=== PATIENT | female | born 1945 | race Caucasian/White ===

== ENCOUNTER 2016-05-03 06:50 | Day surgery (SDC) | payer OTHER, MEDICARE ==
[2016-05-03] MEDS ORDERED: OCTREOTIDE ACETATE,MI-SPHERES (SANDOSTATIN LAR) 30 MG VIAL IM ONE (08:00)
[2016-05-03 12:12] VITALS: BP 98/70; PULSE 58; TEMP 98.2
== END 2016-05-03 12:14 | disposition home or self-care (01) ==
LOC: JONCCHEMO 06:50 → J7W 10:16 → JONCCHEMO 12:14
PROVIDERS: ATTEND Internal Medicine Hematology & Oncology
PROC: 3E013GC Introduction of Other Therapeutic Substance into Subcutaneous Tissue, Percutaneous Approach (ICD-10-PCS; principal; 2016-05-03)
DX: D3A.012 Benign carcinoid tumor of the ileum (principal)
CPT/HCPCS: 96372; J2353

== ENCOUNTER 2016-06-04 07:06 | Day surgery (SDC) | payer OTHER, MEDICARE ==
[2016-06-04] MEDS ORDERED: OCTREOTIDE ACETATE,MI-SPHERES (SANDOSTATIN LAR) 30 MG VIAL IM ONE (08:00)
[2016-06-04 17:49] VITALS: BP 110/60; PULSE 73; TEMP 98.1
== END 2016-06-04 10:30 | disposition home or self-care (01) ==
LOC: JONCCHEMO 07:06 → J7W 10:14 → JONCCHEMO 10:30
PROVIDERS: ATTEND Internal Medicine Hematology & Oncology
PROC: 3E023GC Introduction of Other Therapeutic Substance into Muscle, Percutaneous Approach (ICD-10-PCS; principal; 2016-06-04)
DX: D3A.00 Benign carcinoid tumor of unspecified site (principal)
CPT/HCPCS: 96372; J2353

== ENCOUNTER 2016-06-28 07:05 | Day surgery (SDC) | payer OTHER, MEDICARE ==
[2016-06-28] MEDS ORDERED: OCTREOTIDE ACETATE,MI-SPHERES (SANDOSTATIN LAR) 30 MG VIAL IM ONE (08:00)
[2016-06-28 10:58] VITALS: BP 111/75; PULSE 63; TEMP 97.9
== END 2016-06-28 13:06 | disposition home or self-care (01) ==
LOC: JONCCHEMO 07:05 → J7W 10:26 → JONCCHEMO 13:06
PROVIDERS: ATTEND Internal Medicine Hematology & Oncology
PROC: 3E023GC Introduction of Other Therapeutic Substance into Muscle, Percutaneous Approach (ICD-10-PCS; principal; 2016-06-28)
DX: D3A.00 Benign carcinoid tumor of unspecified site (principal)
CPT/HCPCS: 96372; J2353

== ENCOUNTER 2016-07-24 13:52 | Emergency (ER) | payer OTHER, MEDICARE ==
[2016-07-24] MEDS ORDERED: DOXYCYCLINE HYCLATE 100 MG CAPSULE PO ONE ×3 (14:10→14:18)
[2016-07-24 14:13] VITALS: BP 131/83; PULSE 64; TEMP 98.8; BMI 20.1
--- NOTE | 2016-07-24 14:17 | PDOC ---
History of Present Illness - General Chief Complaint: Bite Stated Complaint: TICK ON RIGHT SIDE Time Seen by Provider: 07/24/16 13:59 History Source: Patient Exam Limitations: No Limitations - History of Present Illness Initial Comments: 07/24/16 14:10 This patient is a 70-year-old female with a history of carcinoid cancer diagnosed in 2001 status post colon resection, status post recurrence and resection of ovaries, history of SVT who presents emergency department with a complaint of headache. Patient states she thought she noted a mole on her right chest a possibly 5 days ago, noted that was bleeding. She did not want to disturb it, She was at a doctors appointment today and showed it to him. Disposition states that the mole was actually a tic, and referred her to her primary care physician. Patient called her primary care physician who told her to come to the emergency department for immediate tick removal. Edema. No fevers no chills. No joint pain. PMH: As above PSH: As above Medications: Please see MAR A LL: Septra results GENERAL/CONSTITUTIONAL: No: fever, chills, weakness, loss of appetite. HEAD, EYES, EARS, NOSE AND THROAT: No: change in vision, ear pain, discharge, sore throat, throat swelling. SKIN: (+) TICK . GENERAL: The patient is in no acute distress. SKIN: Engorged tick burrowing into skin, no surrounding erythema Past History - Past Medical History Allergies/Adverse Reactions: Allergies Allergy/AdvReac Type Severity Reaction Status Date / Time Sulfa (Sulfonamide Allergy Rash Verified 07/24/16 14:26 Antibiotics) Home Medications: Ambulatory Orders Aspirin 81 mg PO DAILY 01/08/13 Calcium Acetate [Phoslo] 2 each PO DAILY 01/08/13 Cholecalciferol (Vitamin D3) [Vitamin D3] 100,000 unit PO DAILY 01/08/13 Cyanocobalamin Vit B-12 Inj. [Vitamin B12 Injection -] 1 mg IM ASDIR 01/08/13 Docosahexanoic Acid/Epa [Fish Oil Softgel] 1 each PO DAILY 01/08/13 L. Rhamnosus GG/Inulin [Culturelle Capsule] 1 each PO DAILY 01/08/13 Octreotide Acetate,Mi-Spheres [Sandostatin Lar -] 30 mg IM ASDIR 01/08/13 FA/Mv,Ca,Iron,Min/Lycopene/Lut [Centrum Tablet] 1 each PO DAILY 06/11/14 Lipase/Protease/Amylase [Creon Dr 24,000 Units Capsule] 1 each PO TID 06/11/14 Metoprolol Succinate [Toprol Xl] 50 mg PO BID 06/11/14 Anemia: No Asthma: No Cancer: No Cardiac Disorders: Yes (SVT,TRANSTHORACIC ECHO MITRAL REGURGITATION) CVA: No COPD: No CHF: No Dementia: No Diabetes: No GI Disorders: Yes (GERD, CARCINOID OF SMALL BOWEL, HIATL HERNIA) Disorders: No HTN: No Hypercholesterolemia: No Liver Disease: No Seizures: No Thyroid Disease: No - Surgical History Abdominal Surgery: Yes (EXTENDED ILEOCOLECTOMY) Appendectomy: Yes Cardiac Surgery: No Cholecystectomy: No Lung Surgery: No Neurologic Surgery: No Orthopedic Surgery: No - Psycho/Social/Smoking Cessation Hx Anxiety: No Suicidal Ideation: No Smoking History: Former smoker Have you smoked in the past 12 months: No If you are a former smoker, when did you quit?: 50 YRS AGO Information on smoking cessation initiated: No Hx Alcohol Use: Yes (SOCIAL) Drug/Substance Use Hx: No Substance Use Type: Alcohol Hx Substance Use Treatment: No *Physical Exam - Vital Signs Last Vital Signs Temp Pulse Resp BP Pulse Ox 98.8 F 64 16 131/83 96 07/24/16 13:54 07/24/16 13:54 07/24/16 13:54 07/24/16 13:54 07/24/16 13:54 Medical Decision Making - Medical Decision Making 07/25/16 08:49 Will give prophylaxis Tick has been attached longer than 72 hour and prophylaxis could not be started within 72 hours according to IDSA guidelines Pt asked to monitor site for target sign Follow up with PMD for testing *DC/Admit/Observation/Transfer Diagnosis at time of Disposition: Tick bite Qualifiers: Encounter type: initial encounter Qualified Code(s): W57.XXXA - Bitten or stung by nonvenomous insect and other nonvenomous arthropods, initial encounter - Discharge Dispostion Disposition: HOME Condition at time of disposition: Stable Admit: No - Patient Instructions Printed Discharge Instructions: DI for Lyme Disease Additional Instructions: You were given Prophylaxis given an engorged tick was removed from your skin Please follow up with your primary care physician for serological testing Please return to the ER or call your doctor if you get symptoms, fevers, chills , joint pain, any other concerns or complaints The tick will be sent for testing
== END 2016-07-24 14:36 | disposition home or self-care (01) ==
LOC: FER 13:52
DX: S20.361A Insect bite (nonvenomous) of right front wall of thorax, initial encounter (principal); W57.XXXA Bitten or stung by nonvenomous insect and other nonvenomous arthropods, initial encounter; Y93.89 Activity, other specified; Y92.9 Unspecified place or not applicable; Z85.030 Personal history of malignant carcinoid tumor of large intestine; K21.9 Gastro-esophageal reflux disease without esophagitis; I47.1 Supraventricular tachycardia; Z79.82 Long term (current) use of aspirin
CPT/HCPCS: 87168; 99281-25

== ENCOUNTER 2016-07-25 07:26 | Day surgery (SDC) | payer OTHER, MEDICARE ==
[2016-07-25] MEDS ORDERED: OCTREOTIDE ACETATE,MI-SPHERES (SANDOSTATIN LAR) 30 MG VIAL IM ONE (10:00)
[2016-07-25 10:29] VITALS: BP 132/80; PULSE 54; TEMP 97.8
== END 2016-07-25 11:04 | disposition home or self-care (01) ==
LOC: JONCCHEMO 07:26 → J7W 10:23 → JONCCHEMO 11:04
PROVIDERS: ATTEND Internal Medicine Hematology & Oncology
PROC: 3E033GC Introduction of Other Therapeutic Substance into Peripheral Vein, Percutaneous Approach (ICD-10-PCS; principal; 2016-07-25)
DX: D3A.00 Benign carcinoid tumor of unspecified site (principal)
CPT/HCPCS: 96372; J2353

== ENCOUNTER 2016-08-30 07:54 | Day surgery (SDC) | payer OTHER, MEDICARE ==
[2016-08-30 09:21] VITALS: BP 132/79; PULSE 53; TEMP 97.6
[2016-08-30] MEDS ORDERED: OCTREOTIDE ACETATE,MI-SPHERES (SANDOSTATIN LAR) 30 MG VIAL IM ONE (10:00)
== END 2016-08-30 11:15 | disposition home or self-care (01) ==
LOC: JONCNONCHE 07:54 → J7W 09:12 → JONCNONCHE 11:15
PROVIDERS: ATTEND Internal Medicine Hematology & Oncology
PROC: 3E023GC Introduction of Other Therapeutic Substance into Muscle, Percutaneous Approach (ICD-10-PCS; principal; 2016-08-30)
DX: D3A.00 Benign carcinoid tumor of unspecified site (principal)
CPT/HCPCS: 96372; J2353

== ENCOUNTER 2016-09-27 07:49 | Day surgery (SDC) | payer OTHER, MEDICARE ==
[2016-09-27] MEDS ORDERED: OCTREOTIDE ACETATE,MI-SPHERES (SANDOSTATIN LAR) 30 MG VIAL IM ONE (08:00)
[2016-09-27 08:53] VITALS: TEMP 98.1
[2016-09-27 09:00] LABS: BASOPHIL 1.1 % (0-2.0); EOSINOPHIL 3.4 % (0-4.5); MCH 31.8 pg (25.7-33.7); MCHC 33.4 g/dl (32.0-36.0); MEAN CELL VOLUME 95.1 fl (80-96); MEAN PLT VOLUME 8.9 fl (7.5-11.1); PLATELET COUNT 124 K/MM3 (134-434); RDW 14.2 % (11.6-15.6); WHITE BLOOD COUNT 5.4 K/mm3 (4.0-10.0)
[2016-09-27 09:23] LABS: ALBUMIN 3.8 g/dl (3.4-5.0); ALK PHOS 87 U/L (45-117); ANION GAP 3 (8-16); BILIRUBIN,DIRECT 0.2 mg/dL (0.0-0.2); BILIRUBIN,TOTAL 0.7 mg/dL (0.2-1.0); CALCIUM 9.1 mg/dL (8.5-10.1); CO2 31 mmol/L (21-32); CREATININE 0.7 mg/dL (0.55-1.02); GLUCOSE,RANDOM 97 mg/dL (74-106); SGOT/AST 46 U/L (15-37); SGPT/ALT 58 U/L (12-78); TOT PROT 7.1 g/dl (6.4-8.2)
[2016-09-27 10:10] VITALS: BP 133/80; PULSE 80
[2016-10-01 10:08] LABS: SEROTONIN,SERUM 668 ng/mL (0-420)
[2016-10-01 16:20] LABS: CHROMOGRANIN A 3 nmol/L (0-5)
== END 2016-09-27 10:15 | disposition home or self-care (01) ==
LOC: JONCCHEMO 07:49 → J7W 09:41 → JONCCHEMO 10:15
PROVIDERS: ATTEND Internal Medicine Hematology & Oncology
PROC: 3E013GC Introduction of Other Therapeutic Substance into Subcutaneous Tissue, Percutaneous Approach (ICD-10-PCS; principal; 2016-09-27)
DX: D3A.00 Benign carcinoid tumor of unspecified site (principal)
CPT/HCPCS: 96372; J2353; 36415; 80053; 80076; 83735; 84260; 85025; 86316

== ENCOUNTER 2016-10-25 07:43 | Day surgery (SDC) | payer OTHER, MEDICARE ==
[2016-10-25] MEDS: OCTREOTIDE ACETATE,MI-SPHERES (SANDOSTATIN LAR) 30 MG VIAL IM ONE ×2 (08:58→17:55)
[2016-10-25 09:08] VITALS: BP 145/88; PULSE 61; TEMP 97.6
== END 2016-10-25 09:10 | disposition home or self-care (01) ==
LOC: JONCCHEMO 07:43 → J7W 08:52 → JONCCHEMO 09:10
PROVIDERS: ATTEND Internal Medicine Hematology & Oncology
PROC: 3E00XGC Introduction of Other Therapeutic Substance into Skin and Mucous Membranes, External Approach (ICD-10-PCS; principal; 2016-10-25)
DX: D3A.00 Benign carcinoid tumor of unspecified site (principal)
CPT/HCPCS: 96372; J2353

== ENCOUNTER 2016-11-29 07:19 | Day surgery (SDC) | payer OTHER, MEDICARE ==
[2016-11-29] MEDS ORDERED: OCTREOTIDE ACETATE,MI-SPHERES (SANDOSTATIN LAR) 30 MG VIAL IM ONE (08:00)
[2016-11-29 16:04] VITALS: BP 113/77; PULSE 66; TEMP 97.7
== END 2016-11-29 19:41 | disposition home or self-care (01) ==
LOC: JONCCHEMO 07:19 → J7W 09:58 → JONCCHEMO 19:41
PROVIDERS: ATTEND Internal Medicine Hematology & Oncology
PROC: 3E013GC Introduction of Other Therapeutic Substance into Subcutaneous Tissue, Percutaneous Approach (ICD-10-PCS; principal; 2016-11-29)
DX: D3A.00 Benign carcinoid tumor of unspecified site (principal)
CPT/HCPCS: J2353

== ENCOUNTER 2016-12-27 07:20 | Day surgery (SDC) | payer OTHER, MEDICARE ==
[2016-12-27 09:39] VITALS: BP 119/78; PULSE 52; TEMP 97.6
[2016-12-27] MEDS ORDERED: OCTREOTIDE ACETATE,MI-SPHERES (SANDOSTATIN LAR) 30 MG VIAL IM ONE (10:00)
== END 2016-12-27 09:45 | disposition home or self-care (01) ==
LOC: JONCCHEMO 07:20 → J7W 09:23 → JONCCHEMO 09:45
PROVIDERS: ATTEND Internal Medicine Hematology & Oncology
PROC: 3E013GC Introduction of Other Therapeutic Substance into Subcutaneous Tissue, Percutaneous Approach (ICD-10-PCS; principal; 2016-12-27)
DX: D3A.00 Benign carcinoid tumor of unspecified site (principal)
CPT/HCPCS: 96372; J2353

== ENCOUNTER 2017-01-31 07:26 | Day surgery (SDC) | payer OTHER, MEDICARE ==
[2017-01-31] MEDS ORDERED: OCTREOTIDE ACETATE,MI-SPHERES (SANDOSTATIN LAR) 30 MG VIAL IM ONE (08:00)
[2017-01-31 10:38] VITALS: PULSE 58; TEMP 97.5
[2017-01-31 10:49] VITALS: BP 147/58
== END 2017-01-31 10:15 | disposition home or self-care (01) ==
LOC: JONCCHEMO 07:26 → J7W 09:58 → JONCCHEMO 10:15
PROVIDERS: ATTEND Internal Medicine Hematology & Oncology
PROC: 3E013GC Introduction of Other Therapeutic Substance into Subcutaneous Tissue, Percutaneous Approach (ICD-10-PCS; principal; 2017-01-31)
DX: D3A.00 Benign carcinoid tumor of unspecified site (principal)
CPT/HCPCS: 96372; J2353

== ENCOUNTER 2017-03-14 07:37 | Day surgery (SDC) | payer OTHER, MEDICARE ==
[2017-03-14 09:35] VITALS: BP 134/79; PULSE 54; TEMP 97.6
[2017-03-14 09:49] LABS: EOS % 1.8 % (0-4.5); HEMATOCRIT 41.2 % (32.4-45.2); HEMOGLOBIN 13.4 GM/dL (10.7-15.3); MCH 30.9 pg (25.7-33.7); MCHC 32.5 g/dl (32.0-36.0); MEAN PLT VOLUME 8.8 fl (7.5-11.1); NEUT % 61.2 % (42.8-82.8); PLATELET COUNT 158 K/MM3 (134-434); RBC 4.34 M/mm3 (3.60-5.2); RDW 13.9 % (11.6-15.6); WHITE BLOOD COUNT 6.3 K/mm3 (4.0-10.0)
[2017-03-14 10:00] LABS: ALBUMIN 3.9 g/dl (3.4-5.0); ALK PHOS 74 U/L (45-117); ANION GAP 4 (8-16); BILIRUBIN,DIRECT 0.2 mg/dL (0.0-0.2); BILIRUBIN,TOTAL 0.6 mg/dL (0.2-1.0); BLOOD UREA NITROGEN 15 mg/dL (7-18); CALCIUM 8.8 mg/dL (8.5-10.1); CHLORIDE 104 mmol/L (98-107); CO2 30 mmol/L (21-32); CREATININE 0.7 mg/dL (0.55-1.02); GLUCOSE,RANDOM 93 mg/dL (74-106); POTASSIUM 4.3 mmol/L (3.5-5.1); SGPT/ALT 26 U/L (12-78); SODIUM 138 mmol/L (136-145); TOT PROT 7.4 g/dl (6.4-8.2)
[2017-03-14] MEDS ORDERED: OCTREOTIDE ACETATE,MI-SPHERES (SANDOSTATIN LAR) 30 MG VIAL IM ONE (10:00)
[2017-03-14 10:03] LABS: SGOT/AST 16 U/L (15-37)
== END 2017-03-14 09:36 | disposition home or self-care (01) ==
LOC: JONCCHEMO 07:37 → J7W 09:00 → JONCCHEMO 09:36
PROVIDERS: ATTEND Internal Medicine Hematology & Oncology
PROC: 3E013GC Introduction of Other Therapeutic Substance into Subcutaneous Tissue, Percutaneous Approach (ICD-10-PCS; principal; 2017-03-14)
DX: D3A.00 Benign carcinoid tumor of unspecified site (principal)
CPT/HCPCS: 36415; 80048; 80076; 82525; 84260; 85025; 86316; 96372; J2353

== ENCOUNTER 2017-04-11 07:22 | Day surgery (SDC) | payer OTHER, MEDICARE ==
[2017-04-11] MEDS ORDERED: OCTREOTIDE ACETATE,MI-SPHERES (SANDOSTATIN LAR) 30 MG VIAL IM ONE (09:00)
[2017-04-11 09:27] VITALS: BP 128/70; PULSE 60; TEMP 97.3
== END 2017-04-11 09:25 | disposition home or self-care (01) ==
LOC: JONCCHEMO 07:22 → J7W 08:59 → JONCCHEMO 09:25
PROVIDERS: ATTEND Internal Medicine Hematology & Oncology
PROC: 3E013GC Introduction of Other Therapeutic Substance into Subcutaneous Tissue, Percutaneous Approach (ICD-10-PCS; principal; 2017-04-11)
DX: D3A.00 Benign carcinoid tumor of unspecified site (principal)
CPT/HCPCS: 96372; 96401; J2353

== ENCOUNTER 2017-07-11 07:30 | Day surgery (SDC) | payer OTHER, MEDICARE ==
[2017-07-11 09:35] VITALS: BP 129/85; PULSE 60; TEMP 97.7
[2017-07-11] MEDS ORDERED: OCTREOTIDE ACETATE,MI-SPHERES (SANDOSTATIN LAR) 30 MG VIAL IM ONE (10:00)
== END 2017-07-11 09:35 | disposition home or self-care (01) ==
LOC: JONCCHEMO 07:30 → J7W 09:19 → JONCCHEMO 09:35
PROVIDERS: ATTEND Internal Medicine Hematology & Oncology
PROC: 3E023GC Introduction of Other Therapeutic Substance into Muscle, Percutaneous Approach (ICD-10-PCS; principal; 2017-07-11)
DX: D3A.00 Benign carcinoid tumor of unspecified site (principal)
CPT/HCPCS: 96372; 96401; J2353

== ENCOUNTER 2017-08-08 07:22 | Day surgery (SDC) | payer OTHER, MEDICARE ==
[2017-08-08] MEDS ORDERED: OCTREOTIDE ACETATE,MI-SPHERES (SANDOSTATIN LAR) 30 MG VIAL IM ONE (09:00)
[2017-08-08 09:01] VITALS: BP 114/76; PULSE 58; TEMP 97.7
== END 2017-08-08 09:11 | disposition home or self-care (01) ==
LOC: JONCCHEMO 07:22 → J7W 08:48 → JONCCHEMO 09:11
PROVIDERS: ATTEND Internal Medicine Hematology & Oncology
PROC: 3E013GC Introduction of Other Therapeutic Substance into Subcutaneous Tissue, Percutaneous Approach (ICD-10-PCS; principal; 2017-08-08)
DX: D3A.00 Benign carcinoid tumor of unspecified site (principal)
CPT/HCPCS: 96372; 96401; J2353

== ENCOUNTER 2017-09-19 07:42 | Day surgery (SDC) | payer OTHER, MEDICARE ==
[2017-09-19] MEDS ORDERED: OCTREOTIDE ACETATE,MI-SPHERES (SANDOSTATIN LAR) 30 MG VIAL IM ONE (09:00)
[2017-09-19 14:19] VITALS: BP 125/83; PULSE 66; TEMP 98.2
== END 2017-09-19 11:25 | disposition home or self-care (01) ==
LOC: JONCCHEMO 07:42 → J7W 11:06 → JONCCHEMO 11:25
PROVIDERS: ATTEND Internal Medicine Hematology & Oncology
PROC: 3E013GC Introduction of Other Therapeutic Substance into Subcutaneous Tissue, Percutaneous Approach (ICD-10-PCS; principal; 2017-09-19)
DX: D3A.00 Benign carcinoid tumor of unspecified site (principal)
CPT/HCPCS: 96372; 96401; J2353

== ENCOUNTER 2017-10-24 07:25 | Day surgery (SDC) | payer OTHER, MEDICARE ==
[2017-10-24 09:18] VITALS: BP 133/85; PULSE 58; TEMP 97.7
[2017-10-24] MEDS ORDERED: OCTREOTIDE ACETATE,MI-SPHERES (SANDOSTATIN LAR) 30 MG VIAL IM ONE (10:00)
== END 2017-10-24 09:19 | disposition home or self-care (01) ==
LOC: JONCCHEMO 07:25 → J7W 09:11 → JONCCHEMO 09:19
PROVIDERS: ATTEND Internal Medicine Hematology & Oncology
PROC: 3E013GC Introduction of Other Therapeutic Substance into Subcutaneous Tissue, Percutaneous Approach (ICD-10-PCS; principal; 2017-10-24)
DX: D3A.00 Benign carcinoid tumor of unspecified site (principal)
CPT/HCPCS: 96372; 96401; J2353

== ENCOUNTER 2017-11-21 07:33 | Day surgery (SDC) | payer OTHER, MEDICARE ==
[2017-11-21] MEDS ORDERED: OCTREOTIDE ACETATE,MI-SPHERES (SANDOSTATIN LAR) 30 MG VIAL IM ONE (10:00)
[2017-11-21 17:49] VITALS: BP 143/80; PULSE 56; TEMP 98.3
== END 2017-11-21 11:20 | disposition home or self-care (01) ==
LOC: JONCCHEMO 07:33 → J7W 10:50 → JONCCHEMO 11:20
PROVIDERS: ATTEND Internal Medicine Hematology & Oncology
PROC: 3E013GC Introduction of Other Therapeutic Substance into Subcutaneous Tissue, Percutaneous Approach (ICD-10-PCS; principal; 2017-11-21)
DX: D3A.00 Benign carcinoid tumor of unspecified site (principal)
CPT/HCPCS: 96365; 96401; J2353

== ENCOUNTER 2017-12-19 07:39 | Day surgery (SDC) | payer OTHER, MEDICARE ==
[2017-12-19] MEDS ORDERED: [UNRECOGNIZED DRUG - OTHER] SQ ONE (10:00)
[2017-12-19 14:46] VITALS: BP 150/90; PULSE 65; TEMP 97.7
== END 2017-12-19 12:15 | disposition home or self-care (01) ==
LOC: JONCCHEMO 07:39 → J7W 11:57 → JONCCHEMO 12:15
PROVIDERS: ATTEND Internal Medicine Hematology & Oncology
PROC: 3E013GC Introduction of Other Therapeutic Substance into Subcutaneous Tissue, Percutaneous Approach (ICD-10-PCS; principal; 2017-12-19)
DX: D3A.00 Benign carcinoid tumor of unspecified site (principal); Z76.89 Persons encountering health services in other specified circumstances
CPT/HCPCS: 96372; J1930

== ENCOUNTER 2018-01-15 07:25 | Day surgery (SDC) | payer OTHER, MEDICARE ==
[2018-01-15] MEDS ORDERED: [UNRECOGNIZED DRUG - OTHER] SQ ONE (09:00)
[2018-01-15 09:51] VITALS: BP 123/75; PULSE 78; TEMP 97
== END 2018-01-15 10:00 | disposition home or self-care (01) ==
LOC: JONCCHEMO 07:25 → J7W 09:15 → JONCCHEMO 10:00
PROVIDERS: ATTEND Internal Medicine Hematology & Oncology
PROC: 3E013GC Introduction of Other Therapeutic Substance into Subcutaneous Tissue, Percutaneous Approach (ICD-10-PCS; principal; 2018-01-15)
DX: D3A.00 Benign carcinoid tumor of unspecified site (principal); Z76.89 Persons encountering health services in other specified circumstances
CPT/HCPCS: 96372; J1930

== ENCOUNTER 2018-02-13 06:04 | Day surgery (SDC) | payer OTHER, MEDICARE ==
[2018-02-13 09:57] LABS: BASO % 0.7 % (0-2.0); EOS % 3.1 % (0-4.5); HEMATOCRIT 38.1 % (32.4-45.2); HEMOGLOBIN 13.3 GM/dL (10.7-15.3); LYMPH % 18.3 % (8-40); MCH 30.4 pg (25.7-33.7); MCHC 34.9 g/dl (32.0-36.0); MEAN CELL VOLUME 87.2 fl (80-96); MEAN PLT VOLUME 8.2 fl (7.5-11.1); MONO % 19.3 % (3.8-10.2); NEUT % 58.6 % (42.8-82.8); PLATELET COUNT 136 K/MM3 (134-434); RBC 4.36 M/mm3 (3.60-5.2); WHITE BLOOD COUNT 4.1 K/mm3 (4.0-10.0)
[2018-02-13] MEDS ORDERED: [UNRECOGNIZED DRUG - OTHER] SQ ONE (10:00)
[2018-02-13 10:52] LABS: ALBUMIN 3.7 g/dl (3.4-5.0); BILIRUBIN,DIRECT 0.2 mg/dL (0.0-0.2); BILIRUBIN,TOTAL 0.5 mg/dL (0.2-1); MAGNESIUM 1.9 mg/dL (1.8-2.4); TOT PROT 6.8 g/dl (6.4-8.2)
[2018-02-13 11:22] LABS: ALBUMIN 3.8 g/dl (3.4-5.0); ALK PHOS 99 U/L (45-117); ANION GAP 7 MMOL/L (8-16); BILIRUBIN,TOTAL 0.5 mg/dL (0.2-1); BLOOD UREA NITROGEN 13 mg/dL (7-18); CALCIUM 8.4 mg/dL (8.5-10.1); CHLORIDE 108 mmol/L (98-107); CO2 26 mmol/L (21-32); CREATININE 0.7 mg/dL (0.55-1.3); GLUCOSE,RANDOM 101 mg/dL (74-106); POTASSIUM 4.6 mmol/L (3.5-5.1); SGOT/AST 42 U/L (15-37); SGPT/ALT 45 U/L (13-61); SODIUM 141 mmol/L (136-145)
[2018-02-13 14:41] VITALS: PULSE 57; TEMP 97.5
[2018-02-13 16:00] VITALS: BP 151/84
== END 2018-02-13 09:55 | disposition home or self-care (01) ==
LOC: JONCCHEMO 06:04 → J7W 09:33 → JONCCHEMO 09:55
PROVIDERS: ATTEND Internal Medicine Hematology & Oncology
PROC: 3E013GC Introduction of Other Therapeutic Substance into Subcutaneous Tissue, Percutaneous Approach (ICD-10-PCS; principal; 2018-02-13)
DX: D3A.00 Benign carcinoid tumor of unspecified site (principal); Z76.89 Persons encountering health services in other specified circumstances
CPT/HCPCS: 36415; 80053; 80076; 82607; 83735; 85025; 96372; J1930

== ENCOUNTER 2018-03-13 05:21 | Day surgery (SDC) | payer OTHER, MEDICARE ==
[2018-03-13] MEDS ORDERED: [UNRECOGNIZED DRUG - OTHER] SQ ONE (09:00)
[2018-03-13 15:13] VITALS: BP 136/79; PULSE 63; TEMP 97.5
== END 2018-03-13 10:10 | disposition home or self-care (01) ==
LOC: JONCCHEMO 05:21 → J7W 09:48 → JONCCHEMO 10:10
PROVIDERS: ATTEND Internal Medicine Hematology & Oncology
PROC: 3E013GC Introduction of Other Therapeutic Substance into Subcutaneous Tissue, Percutaneous Approach (ICD-10-PCS; principal; 2018-03-13)
DX: D3A.00 Benign carcinoid tumor of unspecified site (principal); Z76.89 Persons encountering health services in other specified circumstances
CPT/HCPCS: 96372; J1930

== ENCOUNTER 2018-04-10 07:09 | Day surgery (SDC) | payer OTHER, MEDICARE ==
[2018-04-10] MEDS ORDERED: [UNRECOGNIZED DRUG - OTHER] SQ ONE (10:00)
[2018-04-10 15:47] VITALS: BP 132/71; PULSE 68; TEMP 97.5
== END 2018-04-10 10:30 | disposition home or self-care (01) ==
LOC: JONCCHEMO 07:09 → J7W 10:07 → JONCCHEMO 10:30
PROVIDERS: ATTEND Internal Medicine Hematology & Oncology
PROC: 3E013GC Introduction of Other Therapeutic Substance into Subcutaneous Tissue, Percutaneous Approach (ICD-10-PCS; principal; 2018-04-10)
DX: D3A.00 Benign carcinoid tumor of unspecified site (principal); Z76.89 Persons encountering health services in other specified circumstances
CPT/HCPCS: 96372; J1930

== ENCOUNTER 2018-05-08 07:17 | Day surgery (SDC) | payer OTHER, MEDICARE ==
[2018-05-08] MEDS ORDERED: [UNRECOGNIZED DRUG - OTHER] SQ ONE (11:00)
[2018-05-08 16:46] VITALS: BP 149/76; PULSE 58; TEMP 97.5
== END 2018-05-08 11:45 | disposition home or self-care (01) ==
LOC: JONCCHEMO 07:17 → J7W 11:24 → JONCCHEMO 11:45
PROVIDERS: ATTEND Internal Medicine Hematology & Oncology
PROC: 3E013GC Introduction of Other Therapeutic Substance into Subcutaneous Tissue, Percutaneous Approach (ICD-10-PCS; principal; 2018-05-08)
DX: D3A.00 Benign carcinoid tumor of unspecified site (principal); Z76.89 Persons encountering health services in other specified circumstances
CPT/HCPCS: 96372; J1930

== ENCOUNTER 2018-06-05 07:10 | Day surgery (SDC) | payer OTHER, MEDICARE ==
[2018-06-05] MEDS ORDERED: [UNRECOGNIZED DRUG - OTHER] SQ ONE (10:00)
[2018-06-05 11:00] VITALS: BP 122/68; PULSE 69; TEMP 97.4
== END 2018-06-05 09:25 | disposition home or self-care (01) ==
LOC: JONCCHEMO 07:10 → J7W 09:11 → JONCCHEMO 09:25
PROVIDERS: ATTEND Internal Medicine Hematology & Oncology
PROC: 3E013GC Introduction of Other Therapeutic Substance into Subcutaneous Tissue, Percutaneous Approach (ICD-10-PCS; principal; 2018-06-05)
DX: D3A.00 Benign carcinoid tumor of unspecified site (principal)
CPT/HCPCS: 96372; J1930

== ENCOUNTER 2018-07-03 07:29 | Day surgery (SDC) | payer OTHER, MEDICARE ==
[2018-07-03] MEDS ORDERED: [UNRECOGNIZED DRUG - OTHER] SQ ONE (09:00)
[2018-07-03 15:09] VITALS: BP 142/88; PULSE 83; TEMP 97.7
== END 2018-07-03 09:50 | disposition home or self-care (01) ==
LOC: JONCCHEMO 07:29 → J7W 09:15 → JONCCHEMO 09:50
PROVIDERS: ATTEND Internal Medicine Hematology & Oncology
PROC: 3E033GC Introduction of Other Therapeutic Substance into Peripheral Vein, Percutaneous Approach (ICD-10-PCS; principal; 2018-07-03)
DX: D3A.00 Benign carcinoid tumor of unspecified site (principal)
CPT/HCPCS: 96372; J1930

== ENCOUNTER 2018-07-31 06:16 | Day surgery (SDC) | payer OTHER, MEDICARE ==
[2018-07-31] MEDS ORDERED: [UNRECOGNIZED DRUG - OTHER] SQ ONE (10:00)
[2018-07-31 11:37] VITALS: BP 123/79; PULSE 79; TEMP 98
== END 2018-07-31 09:30 | disposition home or self-care (01) ==
LOC: JONCCHEMO 06:16 → J7W 08:58 → JONCCHEMO 09:30
PROVIDERS: ATTEND Internal Medicine Hematology & Oncology
PROC: 3E013GC Introduction of Other Therapeutic Substance into Subcutaneous Tissue, Percutaneous Approach (ICD-10-PCS; principal; 2018-07-31)
DX: D3A.00 Benign carcinoid tumor of unspecified site (principal)
CPT/HCPCS: 96372; J1930

== ENCOUNTER 2018-08-28 07:17 | Day surgery (SDC) | payer OTHER, MEDICARE ==
[2018-08-28] MEDS ORDERED: [UNRECOGNIZED DRUG - OTHER] SQ ONE (09:00)
[2018-08-28 09:49] LABS: BASO % 0.9 % (0-2.0); EOS % 2.5 % (0-4.5); HEMATOCRIT 37.2 % (32.4-45.2); HEMOGLOBIN 12.3 GM/dL (10.7-15.3); MCH 29.4 pg (25.7-33.7); MCHC 33.1 g/dl (32.0-36.0); MEAN CELL VOLUME 88.8 fl (80-96); MONO % 13.3 % (3.8-10.2); NEUT % 64.3 % (42.8-82.8); PLATELET COUNT 142 K/MM3 (134-434); RBC 4.19 M/mm3 (3.60-5.2); RDW 14.1 % (11.6-15.6); WHITE BLOOD COUNT 3.8 K/mm3 (4.0-10.0)
[2018-08-28 10:14] LABS: ALBUMIN 4.2 g/dl (3.4-5.0); BILIRUBIN,DIRECT 0.4 mg/dL (0.0-0.2); BILIRUBIN,TOTAL 0.8 mg/dL (0.2-1); BLOOD UREA NITROGEN 15.6 mg/dL (7-18); CALCIUM 8.9 mg/dL (8.5-10.1); CREATININE 0.7 mg/dL (0.55-1.3); POTASSIUM 4.5 mmol/L (3.5-5.1); TOT PROT 6.8 g/dl (6.4-8.2)
[2018-08-28 13:39] VITALS: BP 155/85; PULSE 74; TEMP 97.5
== END 2018-08-28 10:20 | disposition home or self-care (01) ==
LOC: JONCCHEMO 07:17 → J7W 09:39 → JONCCHEMO 10:20
PROVIDERS: ATTEND Internal Medicine Hematology & Oncology
PROC: 3E013GC Introduction of Other Therapeutic Substance into Subcutaneous Tissue, Percutaneous Approach (ICD-10-PCS; principal; 2018-08-28)
DX: D3A.00 Benign carcinoid tumor of unspecified site (principal)
CPT/HCPCS: 36415; 80048; 80053; 80076; 84260; 85025; 96372; J1930

== ENCOUNTER 2018-09-25 07:08 | Day surgery (SDC) | payer OTHER, MEDICARE | END 2018-09-25 10:10 | disposition home or self-care (01) | LOC: JONCCHEMO 07:08 → J7W 09:32 → JONCCHEMO 10:10 ==

== ENCOUNTER 2018-10-23 07:00 | Day surgery (SDC) | payer OTHER, MEDICARE ==
[2018-10-23] MEDS ORDERED: [UNRECOGNIZED DRUG - OTHER] SQ ONE (10:00)
[2018-10-23 10:46] VITALS: BP 140/86; PULSE 75; TEMP 97.7
== END 2018-10-23 10:00 | disposition home or self-care (01) ==
LOC: JONCCHEMO 07:00 → J7W 10:02
PROVIDERS: ATTEND Internal Medicine Hematology & Oncology
PROC: 3E013GC Introduction of Other Therapeutic Substance into Subcutaneous Tissue, Percutaneous Approach (ICD-10-PCS; principal; 2018-10-23)
DX: D3A.00 Benign carcinoid tumor of unspecified site (principal); Z76.89 Persons encountering health services in other specified circumstances
CPT/HCPCS: 96372; J1930

== ENCOUNTER 2018-11-20 07:55 | Day surgery (SDC) | payer OTHER, MEDICARE ==
[2018-11-20] MEDS ORDERED: [UNRECOGNIZED DRUG - OTHER] SQ ONE (10:00)
[2018-11-20 14:48] VITALS: BP 155/81; PULSE 73; TEMP 97.9
== END 2018-11-20 09:20 | disposition home or self-care (01) ==
LOC: JONCCHEMO 07:55 → J7W 09:03 → JONCCHEMO 09:20
PROVIDERS: ATTEND Internal Medicine Hematology & Oncology
PROC: 3E013GC Introduction of Other Therapeutic Substance into Subcutaneous Tissue, Percutaneous Approach (ICD-10-PCS; principal; 2018-11-20)
DX: D3A.00 Benign carcinoid tumor of unspecified site (principal); Z76.89 Persons encountering health services in other specified circumstances
CPT/HCPCS: 96372; J1930

== ENCOUNTER 2018-12-25 05:33 | Day surgery (SDC) | payer OTHER, MEDICARE ==
[2018-12-25] MEDS ORDERED: [UNRECOGNIZED DRUG - OTHER] SQ ONE (10:00)
[2018-12-25 14:37] VITALS: BP 152/78; PULSE 72; TEMP 97.7
== END 2018-12-25 10:58 | disposition home or self-care (01) ==
LOC: JONCCHEMO 05:33 → J7W 10:36 → JONCCHEMO 10:58
PROVIDERS: ATTEND Internal Medicine Hematology & Oncology
PROC: 3E013GC Introduction of Other Therapeutic Substance into Subcutaneous Tissue, Percutaneous Approach (ICD-10-PCS; principal; 2018-12-25)
DX: D3A.00 Benign carcinoid tumor of unspecified site (principal); Z76.89 Persons encountering health services in other specified circumstances
CPT/HCPCS: 96372; J1930

== ENCOUNTER 2019-01-22 07:06 | Day surgery (SDC) | payer OTHER, MEDICARE ==
[2019-01-22] MEDS ORDERED: [UNRECOGNIZED DRUG - OTHER] SQ ONE (10:00)
[2019-01-22 13:41] VITALS: BP 138/80; PULSE 74; TEMP 97.2
== END 2019-01-22 13:20 | disposition home or self-care (01) ==
LOC: JONCCHEMO 07:06 → J7W 12:47 → JONCCHEMO 13:20
PROVIDERS: ATTEND Internal Medicine Hematology & Oncology
PROC: 3E013GC Introduction of Other Therapeutic Substance into Subcutaneous Tissue, Percutaneous Approach (ICD-10-PCS; principal; 2019-01-22)
DX: D3A.00 Benign carcinoid tumor of unspecified site (principal); Z76.89 Persons encountering health services in other specified circumstances
CPT/HCPCS: 70220-TC-FY; 96372; J1930

== ENCOUNTER 2019-02-19 07:26 | Day surgery (SDC) | payer OTHER, MEDICARE ==
[2019-02-19] MEDS ORDERED: [UNRECOGNIZED DRUG - OTHER] SQ ONE (10:00)
[2019-02-19 11:06] VITALS: BP 141/80; PULSE 76; TEMP 97.4
== END 2019-02-19 10:35 | disposition home or self-care (01) ==
LOC: JONCCHEMO 07:26 → J7W 10:20 → JONCCHEMO 10:35
PROVIDERS: ATTEND Internal Medicine Hematology & Oncology
PROC: 3E013GC Introduction of Other Therapeutic Substance into Subcutaneous Tissue, Percutaneous Approach (ICD-10-PCS; principal; 2019-02-19)
DX: D3A.00 Benign carcinoid tumor of unspecified site (principal); Z76.89 Persons encountering health services in other specified circumstances
CPT/HCPCS: 96372; J1930

== ENCOUNTER 2019-03-19 07:17 | Day surgery (SDC) | payer OTHER, MEDICARE ==
[2019-03-19] MEDS ORDERED: [UNRECOGNIZED DRUG - OTHER] SQ ONE (10:00)
[2019-03-19 14:08] VITALS: BP 132/80; PULSE 82; TEMP 97.7
== END 2019-03-19 09:40 | disposition home or self-care (01) ==
LOC: JONCCHEMO 07:17 → J7W 09:19 → JONCCHEMO 09:40
PROVIDERS: ATTEND Internal Medicine Hematology & Oncology
PROC: 3E013GC Introduction of Other Therapeutic Substance into Subcutaneous Tissue, Percutaneous Approach (ICD-10-PCS; principal; 2019-03-19)
DX: D3A.00 Benign carcinoid tumor of unspecified site (principal); Z76.89 Persons encountering health services in other specified circumstances
CPT/HCPCS: 96372; J1930

== ENCOUNTER 2019-04-16 05:35 | Day surgery (SDC) | payer OTHER, MEDICARE ==
[2019-04-16] MEDS ORDERED: [UNRECOGNIZED DRUG - OTHER] SQ ONE (10:00)
[2019-04-16 14:07] VITALS: BP 151/77; PULSE 74; TEMP 97.6
== END 2019-04-16 09:35 | disposition home or self-care (01) ==
LOC: JONCCHEMO 05:35 → J7W 09:17 → JONCCHEMO 09:35
PROVIDERS: ATTEND Internal Medicine Hematology & Oncology
PROC: 3E013GC Introduction of Other Therapeutic Substance into Subcutaneous Tissue, Percutaneous Approach (ICD-10-PCS; principal; 2019-04-16)
DX: Z76.89 Persons encountering health services in other specified circumstances (principal); D3A.00 Benign carcinoid tumor of unspecified site; C7A.012 Malignant carcinoid tumor of the ileum; C7B.09 Secondary carcinoid tumors of other sites
CPT/HCPCS: 96372; J1930

== ENCOUNTER 2019-09-03 07:27 | Day surgery (SDC) | payer OTHER, MEDICARE ==
[2019-09-03] MEDS ORDERED: [UNRECOGNIZED DRUG - OTHER] SQ ONE (10:00)
[2019-09-03 14:22] VITALS: BP 134/84; PULSE 93; TEMP 97.7
== END 2019-09-03 10:35 | disposition home or self-care (01) ==
LOC: JONCCHEMO 07:27
PROVIDERS: ATTEND Internal Medicine Hematology & Oncology
PROC: 3E013GC Introduction of Other Therapeutic Substance into Subcutaneous Tissue, Percutaneous Approach (ICD-10-PCS; principal; 2019-09-03)
DX: C7A.012 Malignant carcinoid tumor of the ileum (principal); C79.60 Secondary malignant neoplasm of unspecified ovary
CPT/HCPCS: 96372; J1930

== ENCOUNTER 2019-10-01 07:10 | Day surgery (SDC) | payer OTHER, MEDICARE ==
[2019-10-01] MEDS ORDERED: [UNRECOGNIZED DRUG - OTHER] SQ ONE (10:00)
[2019-10-01 12:14] VITALS: BP 147/87; PULSE 74; TEMP 98
== END 2019-10-01 11:20 | disposition home or self-care (01) ==
LOC: JONCCHEMO 07:10
PROVIDERS: ATTEND Internal Medicine Hematology & Oncology
PROC: 3E013GC Introduction of Other Therapeutic Substance into Subcutaneous Tissue, Percutaneous Approach (ICD-10-PCS; principal; 2019-10-01)
DX: C7A.012 Malignant carcinoid tumor of the ileum (principal); C79.60 Secondary malignant neoplasm of unspecified ovary
CPT/HCPCS: 96372; J1930

== ENCOUNTER 2019-11-26 06:54 | Day surgery (SDC) | payer OTHER, MEDICARE ==
--- OUTSIDE RECORDS SUMMARY | 2019-11-26 07:04 | XMS ---
:1945 Author Organization [facility] Support Name Relationship Address Phone RE Unavailable Unavailable Unavailable CORKY LUIS FRIEND [address] [place] [address] [phone] [place] [address] JANETH CHAPIN [address] [place] [address] Re-disclosure Warning The records that you are about to access may contain information from federally- assisted alcohol or drug abuse programs. If such information is present, then the following federally mandated warning applies: This information has been disclosed to you from records protected by federal confidentiality rules (42 CFR part 2). The federal rules prohibit you from making any further disclosure of this information unless further disclosure is expressly permitted by the written consent of the person to whom it pertains or as otherwise permitted by 42 CFR part 2. A general authorization for the release of medical or other information is NOT sufficient for this purpose. The Federal rules restrict any use of the information to criminally investigate or prosecute any alcohol or drug abuse patient.The records that you are about to access may contain highly sensitive health information, the redisclosure of which is protected by Article 27-F of the [facility] Public Health law. If you continue you may haveaccess to information: Regarding HIV / AIDS; Provided by facilities licensed or operated by the [facility] Office of Mental Health; or Provided by the [facility] Office for People With Developmental Disabilities. If such information is present, then the following [facility] mandated warning applies: This information has been disclosed to you from confidential records which are protected by state law. State law prohibits you from making any further disclosure of this information without the specific written consent of the person to whom it pertains, or as otherwise permitted by law. Any unauthorized further disclosure in violation of state law may result in a fine or long-term sentence or both. A general authorization for the release of medical or other information is NOT sufficient authorization for further disclosure. Insurance Providers Payer name Policy type Policy ID Covered Covered libertarian's Policy P bhupinder / Coverage libertarian ID relationship to [employer] type glynn MEDICARE [id number] SP [id number] [id number] [facility] [id number] SP [id number] [employer] MEDICARE [id number] SP [id number] A
[2019-11-26] MEDS ORDERED: [UNRECOGNIZED DRUG - OTHER] SQ ONE (10:00)
[2019-11-26 15:56] VITALS: BP 116/73; PULSE 80
[2019-11-26 16:08] VITALS: TEMP 97.8
== END 2019-11-26 10:15 | disposition home or self-care (01) ==
LOC: JONCCHEMO 06:54
PROVIDERS: ATTEND Internal Medicine Hematology & Oncology
PROC: 3E013GC Introduction of Other Therapeutic Substance into Subcutaneous Tissue, Percutaneous Approach (ICD-10-PCS; principal; 2019-11-26)
DX: C7A.012 Malignant carcinoid tumor of the ileum (principal); C79.60 Secondary malignant neoplasm of unspecified ovary
CPT/HCPCS: 96372; J1930

== ENCOUNTER 2019-12-11 05:29 | Day surgery (SDC) | payer OTHER, MEDICARE ==
--- OUTSIDE RECORDS SUMMARY | 2019-11-27 11:48 | XMS ---
:1945 [facility] Support Name Relationship Address Phone RE Unavailable Unavailable Unavailable CORKY LUIS FRIEND [address] [place] [address] [place] [address] JANETH CHAPIN [address] [phone] [place] [address] Re-disclosure Warning The records that you are [...] is protected by Article 27-F of the [facility] Public Health law. If you continue you may haveaccess to information: Regarding HIV / AIDS; Provided by facilities licensed or operated by the [facility] Office of Mental Health; or Provided by the [facility] Office for People With Developmental Disabilities. If such information is present, then the following [facility] mandated warning applies: This information has [...] law may result in a fine or fdc sentence or both. A general authorization for the release of medical or other information is NOT sufficient authorization for further disclosure. Insurance Providers Payer name Policy type Policy ID Covered Covered alliance party's Policy P bhupinder / Coverage alliance party ID relationship to [employer] type [employer]nn MEDICARE [id number] SP [id number] [id number] [facility] [id number] SP [id number] [employer] MEDICARE [id number] SP [id number] A
--- OUTSIDE RECORDS SUMMARY | 2019-12-11 05:33 | XMS ---
:1945 Author Organization [facility] Name Relationship Address Phone RE Unavailable Unavailable Unavailable CORKY LUIS FRIEND [address] [facility] [phone] [place] [address] JANETH CHAPIN [address] [place] [address] Re-disclosure Warning The records that you are [...] is protected by Article 27-F of the [facility] Public Health law. If you continue you may haveaccess to information: Regarding HIV / AIDS; Provided by facilities licensed or operated by the [facility] Office of Mental Health; or Provided by the [facility] Office for People With Developmental Disabilities. If such information is present, then the following [facility] mandated warning applies: This information has been [...] law may result in a fine or shelter sentence or both. A general authorization for the release of medical or other information is NOT sufficient authorization for further disclosure. Insurance Providers Payer name Policy type Policy ID Covered Covered alliance party's Policy P bhupinder / Coverage alliance party ID relationship to [employer] type glynn MEDICARE [id number] SP [id number] [facility] [id number] [employer] MEDICARE [id number] A Results ID Date Data Source [id number] 12/07/2019 12:00:00 PM EDT [facility] Name Value Range Interpretation Description Data Sup porting Code Source(s) Document(s ) SARS CoV-2 [facility] Interpretation This lab was ordered by [facility] and reported by [employer]. Procedure
[2019-12-11 08:47] VITALS: TEMP 97.6; BMI 18.4
[2019-12-11 11:11] VITALS: BP 113/80; PULSE 76
--- NOTE | 2019-12-14 16:25 | PATH ---
Surgical Pathology Report Patient Name: AYO CHAPIN [facility]. Rec. #: [id number] /Age/Gender: 1945 (Age: 74) / F Account: [id number] Location: U-ENDOSCOPY Taken: 12/11/2019 Received: 12/11/2019 Reported: 12/14/2019 Physicians: Mendez Bonner M.D. Specimen(s) Received A: BULB AND SECOND PORTION OF DUODENUM B: GASTRIC ANTRUM C: MID AND DISTAL ESOPHAGUS D: PROXIMAL TRANSVERSE POLYP Clinical History Carcinoid surveillance, family history of esophageal cancer Postoperative diagnosis: Cecal polyp, hiatal hernia Final Diagnosis A. DUODENUM, SECOND PORTION AND BULB, BIOPSY: DUODENAL MUCOSA WITHOUT SIGNIFICANT PATHOLOGIC FINDINGS. B. GASTRIC ANTRUM, BIOPSY: GASTRIC ANTRAL MUCOSA WITH MILD CHRONIC GASTRITIS. IMMUNOHISTOCHEMICAL STAIN FOR H. PYLORI IS NEGATIVE. C. MID AND DISTAL ESOPHAGUS, BIOPSY: SQUAMOUS MUCOSA WITHOUT SIGNIFICANT PATHOLOGIC FINDINGS. D. PROXIMAL TRANSVERSE COLON POLYP, BIOPSY: POLYPOID COLONIC MUCOSA WITH SUPERFICIAL HYPERPLASTIC FEATURES. Positive and negative controls (internal if applicable) show appropriate results. Electronically Signed Valery Geronimo M.D. Gross Description A. Received in formalin, labeled "biopsy bulb and second portion of duodenum" are 3 steele, irregular portions of soft tissue ranging from 0.3-0.4 cm. in greatest dimension. The specimens are submitted in toto in one cassette. B. Received in formalin, labeled "biopsy gastric antrum" are 4 steele, irregular portions of soft tissue ranging from 0.1-0.8 cm. in greatest dimension. The specimens are submitted in toto in one cassette. C. Received in formalin, labeled "biopsy mid and distal esophagus" are 3 steele, irregular portions of soft tissue ranging from 0.3-0.4 cm. in greatest dimension. The specimens are submitted in toto in one cassette. D. Received in formalin, labeled "biopsy proximal transverse colon polyp" is a steele, irregular portion of soft tissue measuring 1.1 cm. in greatest dimension. The specimen is submitted in toto in one cassette. DL12/11/2019 saudi12/11/2019
== END 2019-12-11 11:12 | disposition home or self-care (01) ==
LOC: JASU-ENDO 05:29
PROVIDERS: ATTEND Internal Medicine Gastroenterology
PROC: 0DB98ZX Excision of Duodenum, Via Natural or Artificial Opening Endoscopic, Diagnostic (ICD-10-PCS; 2019-12-11)
PROC: 0DB68ZX Excision of Stomach, Via Natural or Artificial Opening Endoscopic, Diagnostic (ICD-10-PCS; 2019-12-11)
PROC: 0DB28ZX Excision of Middle Esophagus, Via Natural or Artificial Opening Endoscopic, Diagnostic (ICD-10-PCS; 2019-12-11)
PROC: 0DB38ZX Excision of Lower Esophagus, Via Natural or Artificial Opening Endoscopic, Diagnostic (ICD-10-PCS; 2019-12-11)
PROC: 0DBL8ZX Excision of Transverse Colon, Via Natural or Artificial Opening Endoscopic, Diagnostic (ICD-10-PCS; principal; 2019-12-11 09:00)
DX: Z08 Encounter for follow-up examination after completed treatment for malignant neoplasm (principal); Z85.060 Personal history of malignant carcinoid tumor of small intestine; K57.30 Diverticulosis of large intestine without perforation or abscess without bleeding; K64.8 Other hemorrhoids; D12.3 Benign neoplasm of transverse colon; Z80.0 Family history of malignant neoplasm of digestive organs; K29.50 Unspecified chronic gastritis without bleeding; K21.9 Gastro-esophageal reflux disease without esophagitis
CPT/HCPCS: 88305-TC; 88342-TC

== ENCOUNTER 2020-01-21 07:10 | Day surgery (SDC) | payer OTHER, MEDICARE ==
[2020-01-21] MEDS ORDERED: [UNRECOGNIZED DRUG - OTHER] SQ ONE (10:00)
[2020-01-21 11:41] VITALS: BP 145/90; PULSE 88; TEMP 97
== END 2020-01-21 10:42 | disposition home or self-care (01) ==
LOC: JONCCHEMO 07:10
PROVIDERS: ATTEND Internal Medicine Hematology & Oncology
PROC: 3E013GC Introduction of Other Therapeutic Substance into Subcutaneous Tissue, Percutaneous Approach (ICD-10-PCS; principal; 2020-01-21)
DX: C7A.012 Malignant carcinoid tumor of the ileum (principal)
CPT/HCPCS: 96372; J1930

== ENCOUNTER 2020-04-14 08:13 | Day surgery (SDC) | payer OTHER, MEDICARE ==
[2020-04-14] MEDS ORDERED: [UNRECOGNIZED DRUG - OTHER] SQ ONE (10:00)
[2020-04-14 15:28] VITALS: BP 122/71; PULSE 87; TEMP 98.1
== END 2020-04-14 11:15 | disposition home or self-care (01) ==
LOC: JONCCHEMO 08:13
PROVIDERS: ATTEND Internal Medicine Hematology & Oncology
PROC: 3E013GC Introduction of Other Therapeutic Substance into Subcutaneous Tissue, Percutaneous Approach (ICD-10-PCS; principal; 2020-04-14)
DX: C7A.012 Malignant carcinoid tumor of the ileum (principal)
CPT/HCPCS: 96372; J1930

== ENCOUNTER 2020-05-05 07:43 | Day surgery (SDC) | payer OTHER, MEDICARE ==
[2020-05-05] MEDS ORDERED: [UNRECOGNIZED DRUG - OTHER] SQ ONE (10:00)
[2020-05-05 17:16] VITALS: BP 127/76; PULSE 80; TEMP 98.7
== END 2020-05-05 10:00 | disposition home or self-care (01) ==
LOC: JONCCHEMO 07:43
PROVIDERS: ATTEND Internal Medicine Hematology & Oncology
PROC: 3E013GC Introduction of Other Therapeutic Substance into Subcutaneous Tissue, Percutaneous Approach (ICD-10-PCS; principal; 2020-05-05)
DX: C7A.012 Malignant carcinoid tumor of the ileum (principal)
CPT/HCPCS: 96372; J1930

== ENCOUNTER 2020-06-02 07:58 | Day surgery (SDC) | payer OTHER, MEDICARE ==
[2020-06-02] MEDS ORDERED: [UNRECOGNIZED DRUG - OTHER] SQ ONE (10:00)
[2020-06-02 14:54] VITALS: BP 117/72; PULSE 80; TEMP 97.5
== END 2020-06-02 09:50 | disposition home or self-care (01) ==
LOC: JONCCHEMO 07:58
PROVIDERS: ATTEND Internal Medicine Hematology & Oncology
PROC: 3E013GC Introduction of Other Therapeutic Substance into Subcutaneous Tissue, Percutaneous Approach (ICD-10-PCS; principal; 2020-06-02)
DX: C7A.012 Malignant carcinoid tumor of the ileum (principal); Z76.89 Persons encountering health services in other specified circumstances
CPT/HCPCS: 96372; J1930

== ENCOUNTER 2020-06-30 07:22 | Day surgery (SDC) | payer OTHER, MEDICARE ==
[2020-06-30] MEDS ORDERED: [UNRECOGNIZED DRUG - OTHER] SQ ONE (10:00)
[2020-06-30 15:20] VITALS: BP 123/73; PULSE 72; TEMP 97.4
== END 2020-06-30 10:10 | disposition home or self-care (01) ==
LOC: JONCCHEMO 07:22
PROVIDERS: ATTEND Internal Medicine Hematology & Oncology
PROC: 3E013GC Introduction of Other Therapeutic Substance into Subcutaneous Tissue, Percutaneous Approach (ICD-10-PCS; principal; 2020-06-30)
DX: C7A.012 Malignant carcinoid tumor of the ileum (principal); Z76.89 Persons encountering health services in other specified circumstances
CPT/HCPCS: 96372; J1930

== ENCOUNTER 2020-07-28 09:32 | Day surgery (SDC) | payer OTHER, MEDICARE ==
[2020-07-28] MEDS ORDERED: [UNRECOGNIZED DRUG - OTHER] SQ ONE (10:00)
[2020-07-28] MEDS ORDERED: ZOLEDRONIC ACID/MAN/WATER 5 MG/100 ML INFUS..BTL IVPB ONE (10:00)
[2020-07-28 15:08] VITALS: TEMP 97.6
[2020-07-28 15:09] VITALS: BP 114/67; PULSE 77
== END 2020-07-28 10:40 | disposition home or self-care (01) ==
LOC: JONCCHEMO 09:32
PROVIDERS: ATTEND Internal Medicine Hematology & Oncology
PROC: 3E033GC Introduction of Other Therapeutic Substance into Peripheral Vein, Percutaneous Approach (ICD-10-PCS; principal; 2020-07-28)
PROC: 3E013GC Introduction of Other Therapeutic Substance into Subcutaneous Tissue, Percutaneous Approach (ICD-10-PCS; 2020-07-28)
DX: C7A.012 Malignant carcinoid tumor of the ileum (principal); Z76.89 Persons encountering health services in other specified circumstances
CPT/HCPCS: 96365; 96372; J1930; J3489

== ENCOUNTER 2020-08-25 07:33 | Day surgery (SDC) | payer OTHER, MEDICARE ==
[2020-08-25] MEDS ORDERED: [UNRECOGNIZED DRUG - OTHER] SQ ONE (09:00)
[2020-08-25 15:52] VITALS: BP 130/77; PULSE 80
[2020-08-25 16:05] VITALS: TEMP 97.8
== END 2020-08-25 10:15 | disposition home or self-care (01) ==
LOC: JONCCHEMO 07:33
PROVIDERS: ATTEND Internal Medicine Hematology & Oncology
PROC: 3E013GC Introduction of Other Therapeutic Substance into Subcutaneous Tissue, Percutaneous Approach (ICD-10-PCS; principal; 2020-08-25)
DX: C7A.012 Malignant carcinoid tumor of the ileum (principal); Z76.89 Persons encountering health services in other specified circumstances
CPT/HCPCS: 96372; J1930

== ENCOUNTER 2020-09-22 07:33 | Day surgery (SDC) | payer OTHER, MEDICARE ==
[2020-09-22] MEDS ORDERED: [UNRECOGNIZED DRUG - OTHER] SQ ONE (10:00)
[2020-09-22 16:04] VITALS: BP 153/88; PULSE 78; TEMP 97.6
== END 2020-09-22 10:40 | disposition home or self-care (01) ==
LOC: JONCCHEMO 07:33
PROVIDERS: ATTEND Internal Medicine Hematology & Oncology
PROC: 3E013GC Introduction of Other Therapeutic Substance into Subcutaneous Tissue, Percutaneous Approach (ICD-10-PCS; principal; 2020-09-22)
DX: C7A.012 Malignant carcinoid tumor of the ileum (principal); Z76.89 Persons encountering health services in other specified circumstances
CPT/HCPCS: 96372; J1930

== ENCOUNTER 2020-10-20 06:51 | Day surgery (SDC) | payer OTHER, MEDICARE ==
[2020-10-20] MEDS ORDERED: [UNRECOGNIZED DRUG - OTHER] SQ ONE (09:00)
[2020-10-20 15:05] VITALS: BP 111/69; PULSE 78; TEMP 97.5
== END 2020-10-20 09:20 | disposition home or self-care (01) ==
LOC: JONCCHEMO 06:51
PROVIDERS: ATTEND Internal Medicine Hematology & Oncology
PROC: 3E013GC Introduction of Other Therapeutic Substance into Subcutaneous Tissue, Percutaneous Approach (ICD-10-PCS; principal; 2020-10-20)
DX: C7A.012 Malignant carcinoid tumor of the ileum (principal); Z76.89 Persons encountering health services in other specified circumstances
CPT/HCPCS: 96372; J1930

== ENCOUNTER 2020-11-16 07:18 | Day surgery (SDC) | payer OTHER, MEDICARE ==
[2020-11-16] MEDS ORDERED: [UNRECOGNIZED DRUG - OTHER] SQ ONE (10:00)
[2020-11-16 16:09] VITALS: BP 121/70; PULSE 80; TEMP 98.2
== END 2020-11-16 10:00 | disposition home or self-care (01) ==
LOC: JONCCHEMO 07:18
PROVIDERS: ATTEND Internal Medicine Hematology & Oncology
PROC: 3E013GC Introduction of Other Therapeutic Substance into Subcutaneous Tissue, Percutaneous Approach (ICD-10-PCS; principal; 2020-11-16)
DX: C7A.8 Other malignant neuroendocrine tumors (principal); C7A.012 Malignant carcinoid tumor of the ileum; C7B.09 Secondary carcinoid tumors of other sites; Z76.89 Persons encountering health services in other specified circumstances
CPT/HCPCS: 96372; J1930

== ENCOUNTER 2021-02-09 08:24 | Day surgery (SDC) | payer OTHER, MEDICARE ==
[~2021-02-09 08:24] MED LIST: [UNRECOGNIZED DRUG - OTHER] SQ ONE
[2021-02-09] MEDS ORDERED: [UNRECOGNIZED DRUG - OTHER] SQ ONE (10:00)
[2021-02-09 10:34] LABS: EOS % 0.9 % (0-4.5); HEMATOCRIT 37.1 % (32.4-45.2); HEMOGLOBIN 12.2 GM/dL (10.7-15.3); LYMPH % 18.8 % (8-40); MCH 29.9 pg (25.7-33.7); MEAN CELL VOLUME 90.6 fl (80-96); MEAN PLT VOLUME 8.1 fl (7.5-11.1); MONO % 9.9 % (3.8-10.2); NEUT % 69.4 % (42.8-82.8); PLATELET COUNT 235 10^3/uL (134-434); RBC 4.09 M/mm3 (3.60-5.2); RDW 18.6 % (11.6-15.6); RETICULOCYTES 0.74 % (0.5-1.5); WHITE BLOOD COUNT 6.4 K/mm3 (4.0-10.0)
[2021-02-09 10:36] LABS: EPI CELLS >36 /uL (0-25.1); HYALINE CASTS 3 /uL (0-3.1); URINE APPEARANCE CLOUDY; URINE BACTERIA 77 /uL (0-1359); URINE BILIRUBIN NEGATIVE (NEGATIVE); URINE COLOR YELLOW; URINE GLUCOSE (UA) NEGATIVE (NEGATIVE); URINE KETONE NEGATIVE (NEGATIVE); URINE LEUK ESTERASE 1+ (NEGATIVE); URINE NITRITE NEGATIVE (NEGATIVE); URINE PROTEIN NEGATIVE (NEGATIVE); URINE UROBILINOGEN 0.2 mg/dL (0.2-1.0); URINE WBC 54 /uL (0-25.8)
[2021-02-09 10:53] LABS: CALCIUM 9.3 mg/dL (8.5-10.1)
[2021-02-09 10:54] LABS: ALBUMIN 3.3 g/dl (3.4-5.0); BLOOD UREA NITROGEN 16.1 mg/dL (7-18); MAGNESIUM 2.3 mg/dL (1.8-2.4)
[2021-02-09 10:56] LABS: BILIRUBIN,DIRECT 0.2 mg/dL (0.0-0.2); IRON SERUM 80 ug/dL (50-175); TOTAL IRON BINDING CAPACITY 267 ug/dL (250-450)
[2021-02-09 10:57] LABS: CREATININE 0.7 mg/dL (0.55-1.3)
[2021-02-09 10:58] LABS: BILIRUBIN,TOTAL 0.4 mg/dL (0.2-1); TOT PROT 7.8 g/dl (6.4-8.2)
[2021-02-09 11:24] LABS: URINE CRYSTALS CA OXALATE /hpf
[2021-02-09 14:50] VITALS: BP 113/73; PULSE 97; TEMP 97.7
== END 2021-02-09 10:10 | disposition home or self-care (01) ==
LOC: JONCCHEMO 08:24
PROVIDERS: ATTEND Internal Medicine Hematology & Oncology
PROC: 3E013GC Introduction of Other Therapeutic Substance into Subcutaneous Tissue, Percutaneous Approach (ICD-10-PCS; principal; 2021-02-09)
DX: C7A.8 Other malignant neuroendocrine tumors (principal); C7A.012 Malignant carcinoid tumor of the ileum; C7B.09 Secondary carcinoid tumors of other sites; Z76.89 Persons encountering health services in other specified circumstances
CPT/HCPCS: 36415; 80048; 80076; 81003; 82728; 83540; 83550; 83735; 85025; 85045; 87086; 96372; J1930

== ENCOUNTER 2021-03-09 07:59 | Day surgery (SDC) | payer OTHER, MEDICARE ==
[2021-03-09] MEDS ORDERED: [UNRECOGNIZED DRUG - OTHER] SQ ONE (10:00)
[2021-03-09 15:10] VITALS: BP 131/71; PULSE 72; TEMP 98.4
== END 2021-03-09 10:55 | disposition home or self-care (01) ==
LOC: JONCCHEMO 07:59
PROVIDERS: ATTEND Internal Medicine Hematology & Oncology
PROC: 3E013GC Introduction of Other Therapeutic Substance into Subcutaneous Tissue, Percutaneous Approach (ICD-10-PCS; principal; 2021-03-09)
DX: C7A.8 Other malignant neuroendocrine tumors (principal); C7A.012 Malignant carcinoid tumor of the ileum; Z76.89 Persons encountering health services in other specified circumstances
CPT/HCPCS: 96372; J1930

== ENCOUNTER 2021-04-05 08:04 | Day surgery (SDC) | payer OTHER, MEDICARE ==
[2021-04-05] MEDS ORDERED: [UNRECOGNIZED DRUG - OTHER] SQ ONE (10:00)
[2021-04-05 14:53] VITALS: BP 114/67; PULSE 84; TEMP 98.3
== END 2021-04-05 12:45 | disposition home or self-care (01) ==
LOC: JONCCHEMO 08:04
PROVIDERS: ATTEND Internal Medicine Hematology & Oncology
PROC: 3E013GC Introduction of Other Therapeutic Substance into Subcutaneous Tissue, Percutaneous Approach (ICD-10-PCS; principal; 2021-04-05)
DX: C7A.012 Malignant carcinoid tumor of the ileum (principal); C7A.8 Other malignant neuroendocrine tumors; Z76.89 Persons encountering health services in other specified circumstances
CPT/HCPCS: 96372; J1930

== ENCOUNTER 2021-05-04 07:37 | Day surgery (SDC) | payer OTHER, MEDICARE ==
[2021-05-04 09:53] VITALS: BP 127/70; PULSE 69; TEMP 97.3
[2021-05-04] MEDS ORDERED: [UNRECOGNIZED DRUG - OTHER] SQ ONE (10:00)
== END 2021-05-04 10:25 | disposition home or self-care (01) ==
LOC: JONCCHEMO 07:37
PROVIDERS: ATTEND Internal Medicine Hematology & Oncology
PROC: 3E013GC Introduction of Other Therapeutic Substance into Subcutaneous Tissue, Percutaneous Approach (ICD-10-PCS; principal; 2021-05-04)
DX: C7A.012 Malignant carcinoid tumor of the ileum (principal); C7A.8 Other malignant neuroendocrine tumors; Z76.89 Persons encountering health services in other specified circumstances
CPT/HCPCS: 96372; J1930

== ENCOUNTER 2021-05-31 10:55 | Day surgery (SDC) | payer OTHER, MEDICARE ==
[2021-05-31] MEDS ORDERED: [UNRECOGNIZED DRUG - OTHER] SQ ONE (12:15)
[2021-05-31 17:09] VITALS: BP 109/75; PULSE 97; TEMP 98.4
== END 2021-05-31 14:30 | disposition home or self-care (01) ==
LOC: JONCCHEMO 10:55
PROVIDERS: ATTEND Internal Medicine Hematology & Oncology
PROC: 3E013GC Introduction of Other Therapeutic Substance into Subcutaneous Tissue, Percutaneous Approach (ICD-10-PCS; principal; 2021-05-31)
DX: Z76.89 Persons encountering health services in other specified circumstances (principal); C7A.012 Malignant carcinoid tumor of the ileum; C7A.8 Other malignant neuroendocrine tumors
CPT/HCPCS: 96372; J1930

== ENCOUNTER 2021-06-29 07:05 | Day surgery (SDC) | payer OTHER, MEDICARE ==
[2021-06-29] MEDS ORDERED: [UNRECOGNIZED DRUG - OTHER] SQ ONE (10:00)
[2021-06-29 18:29] VITALS: BP 129/78; PULSE 67; TEMP 98.2
== END 2021-06-29 10:30 | disposition home or self-care (01) ==
LOC: JONCCHEMO 07:05
PROVIDERS: ATTEND Internal Medicine Hematology & Oncology
PROC: 3E013GC Introduction of Other Therapeutic Substance into Subcutaneous Tissue, Percutaneous Approach (ICD-10-PCS; principal; 2021-06-29)
DX: C7A.012 Malignant carcinoid tumor of the ileum (principal); C7A.8 Other malignant neuroendocrine tumors; Z76.89 Persons encountering health services in other specified circumstances
CPT/HCPCS: 96372; J1930

== ENCOUNTER 2021-07-27 07:57 | Day surgery (SDC) | payer OTHER, MEDICARE ==
[2021-07-27] MEDS ORDERED: [UNRECOGNIZED DRUG - OTHER] SQ ONE (10:00)
[2021-07-27 15:56] VITALS: BP 104/71; PULSE 73; TEMP 98.1
== END 2021-07-27 10:45 | disposition home or self-care (01) ==
LOC: JONCCHEMO 07:57 → EDSTATUS 11:15
PROVIDERS: ATTEND Internal Medicine Hematology & Oncology
PROC: 3E013GC Introduction of Other Therapeutic Substance into Subcutaneous Tissue, Percutaneous Approach (ICD-10-PCS; principal; 2021-07-27)
DX: C7A.012 Malignant carcinoid tumor of the ileum (principal); C7A.8 Other malignant neuroendocrine tumors; Z76.89 Persons encountering health services in other specified circumstances
CPT/HCPCS: 96372; J1930

== ENCOUNTER 2021-08-23 07:21 | Day surgery (SDC) | payer OTHER, MEDICARE ==
[2021-08-23] MEDS ORDERED: [UNRECOGNIZED DRUG - OTHER] SQ ONE (10:00)
[2021-08-23 15:45] VITALS: BP 136/78; PULSE 68; TEMP 97.1
== END 2021-08-23 12:25 | disposition home or self-care (01) ==
LOC: JONCCHEMO 07:21
PROVIDERS: ATTEND Internal Medicine Hematology & Oncology
PROC: 3E013GC Introduction of Other Therapeutic Substance into Subcutaneous Tissue, Percutaneous Approach (ICD-10-PCS; principal; 2021-08-23)
DX: C7A.012 Malignant carcinoid tumor of the ileum (principal); C7A.8 Other malignant neuroendocrine tumors; Z76.89 Persons encountering health services in other specified circumstances
CPT/HCPCS: 96372; J1930

== ENCOUNTER 2021-09-21 07:18 | Day surgery (SDC) | payer OTHER, MEDICARE ==
[2021-09-21 09:45] VITALS: BP 128/80; PULSE 76; TEMP 98
[2021-09-21] MEDS ORDERED: [UNRECOGNIZED DRUG - OTHER] SQ ONE (10:00)
== END 2021-09-21 09:25 | disposition home or self-care (01) ==
LOC: JONCCHEMO 07:18
PROVIDERS: ATTEND Internal Medicine Hematology & Oncology
PROC: 3E013GC Introduction of Other Therapeutic Substance into Subcutaneous Tissue, Percutaneous Approach (ICD-10-PCS; principal; 2021-09-21)
DX: C7A.012 Malignant carcinoid tumor of the ileum (principal); C7A.8 Other malignant neuroendocrine tumors
CPT/HCPCS: 96372; J1930

== ENCOUNTER 2021-10-19 08:26 | Day surgery (SDC) | payer OTHER, MEDICARE ==
[2021-10-19 09:11] VITALS: BP 132/76; PULSE 68; RESP 18; TEMP 97.6
[2021-10-19] MEDS ORDERED: [UNRECOGNIZED DRUG - OTHER] SQ ONE (10:00)
[2021-10-19] MEDS ORDERED: CYANOCOBALAMIN (VITAMIN B-12) 1000 MCG/1 ML VIAL SQ ONE (10:00)
== END 2021-10-19 09:12 | disposition home or self-care (01) ==
LOC: JONCCHEMO 08:26
PROVIDERS: ATTEND Internal Medicine Hematology & Oncology
PROC: 3E013GC Introduction of Other Therapeutic Substance into Subcutaneous Tissue, Percutaneous Approach (ICD-10-PCS; principal; 2021-10-19)
DX: C7A.012 Malignant carcinoid tumor of the ileum (principal); C7A.8 Other malignant neuroendocrine tumors; Z76.89 Persons encountering health services in other specified circumstances
CPT/HCPCS: 96372; J1930

== ENCOUNTER 2021-11-16 08:38 | Day surgery (SDC) | payer OTHER, MEDICARE ==
[2021-11-16 09:01] VITALS: BP 116/75; PULSE 77; RESP 18
[2021-11-16] MEDS ORDERED: [UNRECOGNIZED DRUG - OTHER] SQ ONE (10:00)
[2021-11-16 12:27] VITALS: TEMP 98.8
== END 2021-11-16 09:50 | disposition home or self-care (01) ==
LOC: JONCCHEMO 08:38
PROVIDERS: ATTEND Internal Medicine Hematology & Oncology
PROC: 3E013GC Introduction of Other Therapeutic Substance into Subcutaneous Tissue, Percutaneous Approach (ICD-10-PCS; principal; 2021-11-16)
DX: C7A.012 Malignant carcinoid tumor of the ileum (principal); C7A.8 Other malignant neuroendocrine tumors; Z76.89 Persons encountering health services in other specified circumstances
CPT/HCPCS: 96372; J1930

== ENCOUNTER 2022-01-11 09:31 | Day surgery (SDC) | payer OTHER, MEDICARE ==
[2022-01-11] MEDS ORDERED: [UNRECOGNIZED DRUG - OTHER] SQ ONE (10:00)
[2022-01-11 14:38] VITALS: BP 123/77; PULSE 82; RESP 18; TEMP 97.7
== END 2022-01-11 09:50 | disposition home or self-care (01) ==
LOC: JONCCHEMO 09:31
PROVIDERS: ATTEND Internal Medicine Hematology & Oncology
PROC: 3E013GC Introduction of Other Therapeutic Substance into Subcutaneous Tissue, Percutaneous Approach (ICD-10-PCS; principal; 2022-01-11)
DX: C7A.012 Malignant carcinoid tumor of the ileum (principal); C7A.8 Other malignant neuroendocrine tumors; Z76.89 Persons encountering health services in other specified circumstances
CPT/HCPCS: 96372; J1930

== ENCOUNTER 2022-03-08 09:23 | Day surgery (SDC) | payer OTHER, MEDICARE ==
[2022-03-08] MEDS ORDERED: [UNRECOGNIZED DRUG - OTHER] SQ ONE (10:00)
[2022-03-08 10:18] VITALS: BP 136/85; PULSE 80; RESP 20; TEMP 97.1
== END 2022-03-08 10:22 | disposition home or self-care (01) ==
LOC: JONCCHEMO 09:23
PROVIDERS: ATTEND Internal Medicine Hematology & Oncology
PROC: 3E013GC Introduction of Other Therapeutic Substance into Subcutaneous Tissue, Percutaneous Approach (ICD-10-PCS; principal; 2022-03-08)
DX: C7A.012 Malignant carcinoid tumor of the ileum (principal); Z76.89 Persons encountering health services in other specified circumstances
CPT/HCPCS: 96372; J1930

== ENCOUNTER 2022-04-05 09:53 | Day surgery (SDC) | payer OTHER, MEDICARE ==
[2022-04-05] MEDS ORDERED: [UNRECOGNIZED DRUG - OTHER] SQ ONE (10:00)
[2022-04-05 14:22] VITALS: BP 151/82; PULSE 72; RESP 20; TEMP 97.4
== END 2022-04-05 10:15 | disposition home or self-care (01) ==
LOC: JONCCHEMO 09:53
PROVIDERS: ATTEND Internal Medicine Hematology & Oncology
PROC: 3E013GC Introduction of Other Therapeutic Substance into Subcutaneous Tissue, Percutaneous Approach (ICD-10-PCS; principal; 2022-04-05)
DX: C7A.012 Malignant carcinoid tumor of the ileum (principal); C7A.8 Other malignant neuroendocrine tumors
CPT/HCPCS: 96372; J1930

== ENCOUNTER 2022-05-03 08:51 | Day surgery (SDC) | payer OTHER, MEDICARE ==
[2022-05-03] MEDS ORDERED: [UNRECOGNIZED DRUG - OTHER] SQ ONE (10:00)
[2022-05-03 14:47] VITALS: BP 108/71; PULSE 84; RESP 19; TEMP 98.1
== END 2022-05-03 09:30 | disposition home or self-care (01) ==
LOC: JONCCHEMO 08:51
PROVIDERS: ATTEND Internal Medicine Hematology & Oncology
PROC: 3E013GC Introduction of Other Therapeutic Substance into Subcutaneous Tissue, Percutaneous Approach (ICD-10-PCS; principal; 2022-05-03)
DX: C7A.012 Malignant carcinoid tumor of the ileum (principal); C7A.8 Other malignant neuroendocrine tumors
CPT/HCPCS: 96372; J1930

== ENCOUNTER 2022-05-31 08:50 | Day surgery (SDC) | payer OTHER, MEDICARE ==
[2022-05-31] MEDS ORDERED: [UNRECOGNIZED DRUG - OTHER] SQ ONE (09:00)
[2022-05-31 16:39] VITALS: BP 124/79; PULSE 72; RESP 19; TEMP 97.6
== END 2022-05-31 10:00 | disposition home or self-care (01) ==
LOC: JONCCHEMO 08:50
PROVIDERS: ATTEND Internal Medicine Hematology & Oncology
PROC: 3E013GC Introduction of Other Therapeutic Substance into Subcutaneous Tissue, Percutaneous Approach (ICD-10-PCS; principal; 2022-05-31)
DX: C7A.012 Malignant carcinoid tumor of the ileum (principal); C7A.8 Other malignant neuroendocrine tumors
CPT/HCPCS: 96372; J1930

== ENCOUNTER 2022-06-28 09:04 | Day surgery (SDC) | payer OTHER, MEDICARE ==
[2022-06-28] MEDS ORDERED: [UNRECOGNIZED DRUG - OTHER] SQ ONE (10:00)
[2022-06-28 15:23] VITALS: BP 138/85; PULSE 75; RESP 20; TEMP 97.6
== END 2022-06-28 09:35 | disposition home or self-care (01) ==
LOC: JONCCHEMO 09:04
PROVIDERS: ATTEND Internal Medicine Hematology & Oncology
PROC: 3E013GC Introduction of Other Therapeutic Substance into Subcutaneous Tissue, Percutaneous Approach (ICD-10-PCS; principal; 2022-06-28)
DX: C7A.012 Malignant carcinoid tumor of the ileum (principal); C7A.8 Other malignant neuroendocrine tumors
CPT/HCPCS: 96372; J1930

== ENCOUNTER 2022-07-26 09:47 | Day surgery (SDC) | payer OTHER, MEDICARE ==
[2022-07-26] MEDS ORDERED: ZOLEDRONIC ACID/MAN/WATER 5 MG/100 ML INFUS..BTL IVPB ONE (10:00)
[2022-07-26] MEDS ORDERED: [UNRECOGNIZED DRUG - OTHER] SQ ONE (10:00)
[2022-07-26 17:31] VITALS: BP 139/85; PULSE 69
[2022-07-26 17:32] VITALS: RESP 18; TEMP 97.7
== END 2022-07-26 11:45 | disposition home or self-care (01) ==
LOC: JONCCHEMO 09:47 → J7W 09:49 → JONCCHEMO 11:45
PROVIDERS: ATTEND Internal Medicine Hematology & Oncology
PROC: 3E033GC Introduction of Other Therapeutic Substance into Peripheral Vein, Percutaneous Approach (ICD-10-PCS; principal; 2022-07-26)
PROC: 3E013GC Introduction of Other Therapeutic Substance into Subcutaneous Tissue, Percutaneous Approach (ICD-10-PCS; 2022-07-26)
DX: C7A.012 Malignant carcinoid tumor of the ileum (principal); M85.80 Other specified disorders of bone density and structure, unspecified site
CPT/HCPCS: 96365; 96372; J1930; J3489

== ENCOUNTER 2022-08-23 08:37 | Day surgery (SDC) | payer OTHER, MEDICARE ==
[2022-08-23] MEDS ORDERED: [UNRECOGNIZED DRUG - OTHER] SQ ONE (10:00)
[2022-08-23 14:52] VITALS: BP 136/88; PULSE 84; RESP 20; TEMP 98
== END 2022-08-23 09:30 | disposition home or self-care (01) ==
LOC: JONCCHEMO 08:37 → J7W 08:48 → JONCCHEMO 09:30
PROVIDERS: ATTEND Internal Medicine Hematology & Oncology
PROC: 3E013GC Introduction of Other Therapeutic Substance into Subcutaneous Tissue, Percutaneous Approach (ICD-10-PCS; principal; 2022-08-23)
DX: C7A.012 Malignant carcinoid tumor of the ileum (principal); M85.80 Other specified disorders of bone density and structure, unspecified site
CPT/HCPCS: 96372; J1930

== ENCOUNTER 2022-10-18 09:19 | Day surgery (SDC) | payer OTHER, MEDICARE ==
[2022-10-18] MEDS ORDERED: [UNRECOGNIZED DRUG - OTHER] SQ ONE (10:00)
[2022-10-18 17:30] VITALS: BP 153/81; PULSE 67; RESP 18; TEMP 97.5
== END 2022-10-18 10:00 | disposition home or self-care (01) ==
LOC: JONCCHEMO 09:19 → J7W 09:20 → JONCCHEMO 10:00
PROVIDERS: ATTEND Internal Medicine Hematology & Oncology
PROC: 3E013GC Introduction of Other Therapeutic Substance into Subcutaneous Tissue, Percutaneous Approach (ICD-10-PCS; principal; 2022-10-18)
DX: C7A.012 Malignant carcinoid tumor of the ileum (principal)
CPT/HCPCS: 96372; J1930

== ENCOUNTER 2022-11-15 08:51 | Day surgery (SDC) | payer OTHER, MEDICARE ==
[2022-11-15] MEDS ORDERED: [UNRECOGNIZED DRUG - OTHER] SQ ONE (10:00)
[2022-11-15 12:23] VITALS: BP 131/87; PULSE 82; RESP 20; TEMP 98.3
== END 2022-11-15 09:45 | disposition home or self-care (01) ==
LOC: JONCCHEMO 08:51 → J7W 08:53 → JONCCHEMO 09:45
PROVIDERS: ATTEND Internal Medicine Hematology & Oncology
PROC: 3E013GC Introduction of Other Therapeutic Substance into Subcutaneous Tissue, Percutaneous Approach (ICD-10-PCS; principal; 2022-11-15)
DX: Z76.89 Persons encountering health services in other specified circumstances (principal); C7A.8 Other malignant neuroendocrine tumors
CPT/HCPCS: 96372; J1930

== ENCOUNTER 2022-12-17 13:43 | Day surgery (SDC) | payer OTHER, MEDICARE ==
[2022-12-17 18:18] VITALS: BP 142/93; PULSE 86; RESP 18; TEMP 97.7
== END 2022-12-17 14:20 | disposition home or self-care (01) ==
LOC: JONCCHEMO 13:43 → J7W 13:45 → JONCCHEMO 14:20
PROVIDERS: ATTEND Internal Medicine Hematology & Oncology
PROC: 3E013GC Introduction of Other Therapeutic Substance into Subcutaneous Tissue, Percutaneous Approach (ICD-10-PCS; principal; 2022-12-17)
DX: C7A.012 Malignant carcinoid tumor of the ileum (principal); C7B.01 Secondary carcinoid tumors of distant lymph nodes; Z76.89 Persons encountering health services in other specified circumstances
CPT/HCPCS: 96372; J1930

== ENCOUNTER 2023-01-10 11:10 | Day surgery (SDC) | payer OTHER, MEDICARE ==
[2023-01-10 12:24] VITALS: BP 143/75; PULSE 68; RESP 18; TEMP 97.6
== END 2023-01-10 11:30 | disposition home or self-care (01) ==
LOC: J7W 11:10 → JONCCHEMO 11:10
PROVIDERS: ATTEND Internal Medicine Hematology & Oncology
PROC: 3E013GC Introduction of Other Therapeutic Substance into Subcutaneous Tissue, Percutaneous Approach (ICD-10-PCS; principal; 2023-01-10)
DX: C7A.012 Malignant carcinoid tumor of the ileum (principal); C78.01 Secondary malignant neoplasm of right lung
CPT/HCPCS: 96372; J1930

== ENCOUNTER 2023-02-07 09:23 | Day surgery (SDC) | payer OTHER, MEDICARE ==
[2023-02-07] MEDS ORDERED: [UNRECOGNIZED DRUG - OTHER] SQ ONE (10:00)
[2023-02-07 13:35] VITALS: BP 143/81; PULSE 81; RESP 18; TEMP 97.6
== END 2023-02-07 09:45 | disposition home or self-care (01) ==
LOC: JONCCHEMO 09:23 → J7W 09:25 → JONCCHEMO 09:45
PROVIDERS: ATTEND Internal Medicine Hematology & Oncology
PROC: 3E013GC Introduction of Other Therapeutic Substance into Subcutaneous Tissue, Percutaneous Approach (ICD-10-PCS; principal; 2023-02-07)
DX: C7A.012 Malignant carcinoid tumor of the ileum (principal); C78.01 Secondary malignant neoplasm of right lung
CPT/HCPCS: 96402; J1930

== ENCOUNTER 2023-03-07 10:21 | Day surgery (SDC) | payer OTHER, MEDICARE ==
[2023-03-07 11:02] VITALS: BP 133/76; PULSE 74; RESP 18
[2023-03-07 12:09] VITALS: TEMP 97.6
== END 2023-03-07 11:00 | disposition home or self-care (01) ==
LOC: JONCCHEMO 10:21 → J7W 10:23 → JONCCHEMO 11:00
PROVIDERS: ATTEND Internal Medicine Hematology & Oncology
PROC: 3E013GC Introduction of Other Therapeutic Substance into Subcutaneous Tissue, Percutaneous Approach (ICD-10-PCS; principal; 2023-03-07)
DX: C7A.012 Malignant carcinoid tumor of the ileum (principal); C78.01 Secondary malignant neoplasm of right lung
CPT/HCPCS: 96372; J1930

== ENCOUNTER 2023-04-04 09:30 | Day surgery (SDC) | payer OTHER, MEDICARE ==
[2023-04-04] MEDS ORDERED: [UNRECOGNIZED DRUG - OTHER] SQ ONE (10:00)
[2023-04-04 15:24] VITALS: BP 135/87; PULSE 79; TEMP 97.7
[2023-04-04 15:31] VITALS: RESP 18
== END 2023-04-04 10:45 | disposition home or self-care (01) ==
LOC: JONCCHEMO 09:30 → J7W 09:33 → JONCCHEMO 10:45
PROVIDERS: ATTEND Internal Medicine Hematology & Oncology
PROC: 3E013GC Introduction of Other Therapeutic Substance into Subcutaneous Tissue, Percutaneous Approach (ICD-10-PCS; principal; 2023-04-04)
DX: C7A.012 Malignant carcinoid tumor of the ileum (principal); C78.01 Secondary malignant neoplasm of right lung
CPT/HCPCS: 96372; J1930

== ENCOUNTER 2023-05-02 08:43 | Day surgery (SDC) | payer OTHER, MEDICARE ==
[2023-05-02 08:53] VITALS: BP 148/77; PULSE 68; RESP 18
[2023-05-02] MEDS: [UNRECOGNIZED DRUG - OTHER] SQ ONE (09:03)
[2023-05-02 09:21] VITALS: TEMP 97.8
== END 2023-05-02 09:20 | disposition home or self-care (01) ==
LOC: JONCCHEMO 08:43 → J7W 08:44 → JONCCHEMO 09:20
PROVIDERS: ATTEND Internal Medicine Hematology & Oncology
PROC: 3E013GC Introduction of Other Therapeutic Substance into Subcutaneous Tissue, Percutaneous Approach (ICD-10-PCS; principal; 2023-05-02)
DX: C7A.012 Malignant carcinoid tumor of the ileum (principal); C78.01 Secondary malignant neoplasm of right lung
CPT/HCPCS: 96372; J1930

== ENCOUNTER 2023-05-30 08:56 | Day surgery (SDC) | payer OTHER, MEDICARE ==
[2023-05-30] MEDS: [UNRECOGNIZED DRUG - OTHER] SQ ONE (09:21)
[2023-05-30 13:57] VITALS: BP 130/80; PULSE 84; RESP 20; TEMP 98.3
== END 2023-05-30 10:15 | disposition home or self-care (01) ==
LOC: JONCCHEMO 08:56 → J7W 08:56 → JONCCHEMO 10:15
PROVIDERS: ATTEND Internal Medicine Hematology & Oncology
PROC: 3E013GC Introduction of Other Therapeutic Substance into Subcutaneous Tissue, Percutaneous Approach (ICD-10-PCS; principal; 2023-05-30)
DX: C7A.012 Malignant carcinoid tumor of the ileum (principal); C78.01 Secondary malignant neoplasm of right lung
CPT/HCPCS: 96372; J1930

== ENCOUNTER 2023-06-27 09:13 | Day surgery (SDC) | payer OTHER, MEDICARE ==
[2023-06-27] MEDS: [UNRECOGNIZED DRUG - OTHER] SQ ONE (09:18)
[2023-06-27 09:27] VITALS: BP 134/77; PULSE 71; RESP 18; TEMP 97.4
== END 2023-06-27 09:35 | disposition home or self-care (01) ==
LOC: JONCCHEMO 09:13 → J7W 09:14 → JONCCHEMO 09:35
PROVIDERS: ATTEND Internal Medicine Hematology & Oncology
PROC: 3E013GC Introduction of Other Therapeutic Substance into Subcutaneous Tissue, Percutaneous Approach (ICD-10-PCS; principal; 2023-06-27)
DX: C7A.012 Malignant carcinoid tumor of the ileum (principal); C78.01 Secondary malignant neoplasm of right lung
CPT/HCPCS: 96372; J1930

== ENCOUNTER 2024-03-12 09:20 | Day surgery (SDC) | payer OTHER, MEDICARE ==
[2024-03-12] MEDS: [UNRECOGNIZED DRUG - OTHER] SQ ONE (09:26)
[2024-03-12 14:38] VITALS: BP 143/80; PULSE 92; RESP 20; TEMP 98.4
== END 2024-03-12 10:00 | disposition home or self-care (01) ==
LOC: JONCCHEMO 09:20 → J7W 09:21 → JONCCHEMO 10:00
PROVIDERS: ATTEND Internal Medicine Hematology & Oncology
PROC: 3E013GC Introduction of Other Therapeutic Substance into Subcutaneous Tissue, Percutaneous Approach (ICD-10-PCS; principal; 2024-03-12)
DX: C7A.012 Malignant carcinoid tumor of the ileum (principal)
CPT/HCPCS: 96372; J1930

== ENCOUNTER 2024-05-07 09:22 | Day surgery (SDC) | payer OTHER, MEDICARE ==
[2024-05-07] MEDS: [UNRECOGNIZED DRUG - OTHER] SQ ONE (09:26)
[2024-05-07 15:55] VITALS: BP 96/72; PULSE 91; RESP 20; TEMP 97.8
== END 2024-05-07 10:00 | disposition home or self-care (01) ==
LOC: JONCCHEMO 09:22
PROVIDERS: ATTEND Internal Medicine Hematology & Oncology
PROC: 3E013GC Introduction of Other Therapeutic Substance into Subcutaneous Tissue, Percutaneous Approach (ICD-10-PCS; principal; 2024-05-07)
DX: C7A.012 Malignant carcinoid tumor of the ileum (principal); C7A.8 Other malignant neuroendocrine tumors; Z76.89 Persons encountering health services in other specified circumstances
CPT/HCPCS: 96372; J1932

== ENCOUNTER 2024-06-04 08:03 | Day surgery (SDC) | payer OTHER, MEDICARE ==
[2024-06-04] MEDS: [UNRECOGNIZED DRUG - OTHER] SQ ONE (09:04)
[2024-06-04 14:58] VITALS: BP 118/72; PULSE 73; RESP 18; TEMP 97.4
== END 2024-06-04 09:15 | disposition home or self-care (01) ==
LOC: JONCCHEMO 08:03
PROVIDERS: ATTEND Internal Medicine Hematology & Oncology
PROC: 3E013GC Introduction of Other Therapeutic Substance into Subcutaneous Tissue, Percutaneous Approach (ICD-10-PCS; principal; 2024-06-04)
DX: C7A.012 Malignant carcinoid tumor of the ileum (principal); C7A.8 Other malignant neuroendocrine tumors
CPT/HCPCS: 96372; J1932

== ENCOUNTER 2024-07-02 09:01 | Day surgery (SDC) | payer OTHER, MEDICARE ==
[2024-07-02] MEDS: [UNRECOGNIZED DRUG - OTHER] SQ ONE (09:21)
[2024-07-02 10:46] VITALS: BP 128/72; PULSE 70; RESP 20; TEMP 97.4
== END 2024-07-02 09:30 | disposition home or self-care (01) ==
LOC: JONCCHEMO 09:01
PROVIDERS: ATTEND Internal Medicine Hematology & Oncology
PROC: 3E023GC Introduction of Other Therapeutic Substance into Muscle, Percutaneous Approach (ICD-10-PCS; principal; 2024-07-02)
DX: C7A.012 Malignant carcinoid tumor of the ileum (principal); C7B.8 Other secondary neuroendocrine tumors; Z76.89 Persons encountering health services in other specified circumstances
CPT/HCPCS: 96372; J1932

== ENCOUNTER 2024-09-24 08:52 | Day surgery (SDC) | payer OTHER, MEDICARE ==
[2024-09-24] MEDS: [UNRECOGNIZED DRUG - OTHER] SQ ONE (09:00)
[2024-09-24 13:29] VITALS: BP 109/66; PULSE 76; RESP 16; TEMP 97.7
== END 2024-09-24 09:15 | disposition home or self-care (01) ==
LOC: JONCCHEMO 08:52 → J7W 08:55 → JONCCHEMO 09:15
PROVIDERS: ATTEND Internal Medicine Hematology & Oncology
PROC: 3E013GC Introduction of Other Therapeutic Substance into Subcutaneous Tissue, Percutaneous Approach (ICD-10-PCS; principal; 2024-09-24)
DX: C7A.012 Malignant carcinoid tumor of the ileum (principal)
CPT/HCPCS: 96372; J1930

== ENCOUNTER 2024-10-22 08:35 | Day surgery (SDC) | payer OTHER, MEDICARE ==
[2024-10-22 08:56] VITALS: BP 131/75; PULSE 66; RESP 18; TEMP 97.5
[2024-10-22] MEDS: [UNRECOGNIZED DRUG - OTHER] SQ ONE (09:03)
== END 2024-10-22 09:10 | disposition home or self-care (01) ==
LOC: JONCCHEMO 08:35
PROVIDERS: ATTEND Internal Medicine Hematology & Oncology
PROC: 3E013GC Introduction of Other Therapeutic Substance into Subcutaneous Tissue, Percutaneous Approach (ICD-10-PCS; principal; 2024-10-22)
DX: C7A.012 Malignant carcinoid tumor of the ileum (principal); C79.60 Secondary malignant neoplasm of unspecified ovary; Z76.89 Persons encountering health services in other specified circumstances
CPT/HCPCS: 96372; J1932

== ENCOUNTER 2024-11-19 08:58 | Day surgery (SDC) | payer OTHER, MEDICARE ==
[2024-11-19] MEDS: [UNRECOGNIZED DRUG - OTHER] SQ ONE (09:14)
[2024-11-19 13:07] VITALS: BP 115/63; PULSE 73; RESP 20; TEMP 97.6
== END 2024-11-19 09:30 | disposition home or self-care (01) ==
LOC: JONCCHEMO 08:58
PROVIDERS: ATTEND Internal Medicine Hematology & Oncology
PROC: 3E023GC Introduction of Other Therapeutic Substance into Muscle, Percutaneous Approach (ICD-10-PCS; principal; 2024-11-19)
DX: C7A.012 Malignant carcinoid tumor of the ileum (principal); Z76.89 Persons encountering health services in other specified circumstances; C7A.8 Other malignant neuroendocrine tumors
CPT/HCPCS: 96372; J1932

== ENCOUNTER 2024-12-17 09:10 | Day surgery (SDC) | payer OTHER, MEDICARE ==
[2024-12-17] MEDS: [UNRECOGNIZED DRUG - OTHER] SQ ONE (09:17)
[2024-12-17 14:11] VITALS: BP 140/70; PULSE 74; RESP 20; TEMP 98
== END 2024-12-17 14:14 | disposition home or self-care (01) ==
LOC: JONCCHEMO 09:10 → J7W 09:53 → JONCCHEMO 14:14
PROVIDERS: ATTEND Internal Medicine Hematology & Oncology
PROC: 3E013GC Introduction of Other Therapeutic Substance into Subcutaneous Tissue, Percutaneous Approach (ICD-10-PCS; principal; 2024-12-17)
DX: C7A.012 Malignant carcinoid tumor of the ileum (principal); C7A.8 Other malignant neuroendocrine tumors
CPT/HCPCS: 96372; J1932